=== PATIENT | female | born 1945 | race Caucasian/White ===

== ENCOUNTER 2016-08-21 20:15 | Emergency (ER) | payer OTHER ==
[~2016-08-21] VITALS: Ht 154.9 cm; Wt 61.8 kg
[2016-08-21] MEDS ORDERED: MOTRIN600 MG PO (23:23)
[2016-08-21] MEDS ORDERED: COLACE100 MG PO (23:23)
[2016-08-21] MEDS ORDERED: LORTAB 5-325 M1 EACH PO (23:23)
[2016-08-21] MEDS ORDERED: ZOFRAN ODT4 MG PO (23:23)
[2016-08-21 23:47] VITALS: BP 132/71
== END 2016-08-21 23:56 | disposition home or self-care (01) ==
LOC: EME → EDBD 20:15 → EME 23:56
DX: S52.502A Unspecified fracture of the lower end of left radius, initial encounter for closed fracture (principal); S52.612A Displaced fracture of left ulna styloid process, initial encounter for closed fracture; W17.89XA Other fall from one level to another, initial encounter; Z87.891 Personal history of nicotine dependence
CPT/HCPCS: 73110; 99281; 99285; J1885; J2270; J2405; J3010